=== PATIENT | female | born 1995 | race Asian ===

== ENCOUNTER 2017-01-29 00:32 | Emergency (ER) | payer OTHER ==
[2017-01-29] MEDS ORDERED: IBUPROFEN 800 MG TAB PO ONE (00:49)
--- NOTE | 2017-01-29 00:52 | EDPHY ---
H & P Stated Complaint: R rib pain x1 week post skiing HPI/ROS: HPI CHIEF COMPLAINT: Fall, right rib pain. HISTORY OF PRESENT ILLNESS: Patient is a very pleasant 21-year-old female she is otherwise healthy, no significant medical history presents emergency room with right rib pain. Patient reports on Tuesday she was at [employer] and she fell on her right ribs she immediately had pain. This did get better on Tuesday she had mild pain over right chest wall. This evening she developed worsening right lateral anterior chest wall pain. It is worse when she takes deep breath in. Additionally it is worse when she goes to sit up. Additionally he press on her right chest in 1 focal area it hurts her. She denies any abdominal pain in her abdomen is soft nontender here. She has not any vomiting. She denies any shortness of breath. She denies any re-injury of her chest wall. She is unsure why it caused more pain this evening. Past Medical History: Denies medical history Past Surgical History: Denies surgical history Social History: [employer] ([place], [place]) student from [employer]. Denies illicit drugs alcohol tobacco. Family History: Noncontributory. ROS REVIEW OF SYSTEMS: A comprehensive 10 point review of systems is otherwise negative aside from elements mentioned in the history of present illness. Exam Constitutional appears well nontoxic triage nursing summary reviewed, vital signs reviewed, awake/alert. Eyes normal conjunctivae and sclera, EOMI, PERRLA. HENT normal inspection, atraumatic, moist mucus membranes, no epistaxis, neck supple/ no meningismus, no raccoon eyes. Respiratory clear to auscultation bilaterally, normal breath sounds, no respiratory distress, no wheezing. Cardiovascular chest wall: On the right anterior lateral chest wall there is 1 area of focal tenderness. There is no crepitus. No ecchymosis. No flail chest. Good breath sounds bilaterally. rate normal, regular rhythm, no murmur, no edema, distal pulses normal. Gastrointestinal specifically no right upper quadrant pain, soft, non-tender, no rebound, no guarding, normal bowel sounds, no distension, no pulsatile mass. Genitourinary no CVA tenderness. Musculoskeletal no midline vertebral tenderness, full range of motion, no calf swelling, no tenderness of extremities, no meningismus, good pulses, neurovascularly intact. Skin pink, warm, & dry, no rash, skin atraumatic. Neurologic awake, alert and oriented x 3, AAOx3, moves all 4 extremities equally, motor intact, sensory intact, CN II-XII intact, normal cerebellar, normal vision, normal speech. Psychiatric normal mood/affect. Heme/Lymph/Immune no lymphadenopathy. Differential Diagnosis: Includes but is not limited to in a particular order rib contusion, musculoskeletal strain, rib fracture, pneumothorax, pneumohemothorax Medical Decision Making: Plan for this patient ibuprofen 800 mg. And chest x- ray two view with rib series. Re-evaluate. Re-evaluation: ED x-ray chest with rib series: This interpreted by myself. I do not appreciate pneumothorax. I do not see any acute rib fracture. However clinically on exam she does have tenderness in this area. There may be a rib fracture that I do not appreciate on x-ray. Will prescribe her Holloway for pain control and ibuprofen for mild pain. Will recommend incentive spirometer. Additionally will recommend she return emergency room there is worsening pain shortness of breath vomiting or fever she understands. 0313: I did re-evaluate this patient this time no acute distress. Patient is feeling much better with anti-inflammatory pain medicine. Denies current pain at this time. She would like to go home. Her chest x-ray with rib series been reviewed I do not appreciate a pneumothorax or acute rib fracture. It is possible there is a small fracture I cannot visualize. Additionally may be possible that she has bruising ribs. I went over this with her. She understands return emergency room she develops worsening symptoms includes worsening pain abdominal pain fever vomiting. Will provide incentive spirometer for home. Her abdomen is soft at this time. Vital signs are stable. All her questions have been answered. Return precautions given. Source: Patient - Personal History LMP (Females 10-55): 1-7 Days Ago Current Tetanus/Diphtheria Vaccine: Unsure - Medical/Surgical History Hx Asthma: No Hx Chronic Respiratory Disease: No Hx Diabetes: No Hx Cardiac Disease: No Hx Renal Disease: No Hx Cirrhosis: No Hx Alcoholism: No Hx HIV/AIDS: No Hx Splenectomy or Spleen Trauma: No Other PMH: denies - Social History Smoking Status: Never smoked Constitutional: Initial Vital Signs Temperature (C) 36.4 C 01/29/17 00:33 Heart Rate 83 01/29/17 00:33 Respiratory Rate 18 01/29/17 00:33 Blood Pressure 123/94 H 01/29/17 00:33 O2 Sat (%) 98 01/29/17 00:33 Allergies/Adverse Reactions: No Known Allergies Allergy (Unverified 01/29/17 00:37) Home Medications: Medication Instructions Recorded Hydrocodone/APAP 5/325 [Holloway 1 - 2 tab PO Q4H PRN #10 tab 01/29/17 5/325] Ibuprofen [Motrin (*)] 800 mg PO Q6-8PRN #7 tab 01/29/17 Medical Decision Making - Data Points Medications Given: Discontinued Medications Ibuprofen (Motrin) 800 mg PO EDNOW ONE Stop: 01/29/17 00:50 Last Admin: 01/29/17 00:54 Dose: 800 mg Departure - Departure Disposition: Home, Routine, Self-Care Clinical Impression: Rib fracture Qualifiers: Encounter type: initial encounter Rib fracture type: single rib Fracture type: closed Laterality: right Qualified Code(s): S22.31XA - Fracture of one rib, right side, initial encounter for closed fracture Condition: Good Instructions: Rib Fracture (ED) Additional Instructions: 1. Return emergency room if you have worsening symptoms includes worsening pain , shortness of breath. 2. Ibuprofen for mild pain. 3. Holloway for severe pain. 4. Please use your incentive spirometer. Referrals: NONE *PRIMARY CARE P,. [Primary Care Provider] - As per Instructions Prescriptions: Hydrocodone/APAP 5/325 [Holloway 5/325] 1 - 2 tab PO Q4H PRN #10 tab PRN Reason: Pain, Moderate Ibuprofen [Motrin (*)] 800 mg PO Q6-8PRN #7 tab
[2017-01-29 03:31] VITALS: BP 113/74; PULSE 74; RESP 16; TEMP 97.9; O2SAT 96
== END 2017-01-29 03:30 | disposition home or self-care (01) ==
DX: S22.31XA Fracture of one rib, right side, initial encounter for closed fracture (principal); V00.321A Fall from snow-skis, initial encounter; Y99.8 Other external cause status; Y93.24 Activity, cross country skiing